=== PATIENT | male | born 1985 | race Caucasian/White ===

== ENCOUNTER → 2021-04-19 | Emergency (ER) | payer OTHER ==
[~2021-04-19] VITALS: Ht 193 cm; Wt 131.5 kg
[~2021-04-19] MED LIST: CIPRO500 MG PO; FLAGYL500MG PO; INTESTINEX680 M1 PO; PEPCID AC20 MG PO
== END | disposition home or self-care (01) ==
LOC: ER 12:51
DX: R10.84 Generalized abdominal pain (principal); K52.89 Other specified noninfective gastroenteritis and colitis; N39.0 Urinary tract infection, site not specified; K76.0 Fatty (change of) liver, not elsewhere classified; E86.0 Dehydration; Z11.52 Encounter for screening for COVID-19